=== PATIENT | female | born 1965 | race Caucasian/White ===

== ENCOUNTER 2020-01-21 18:20 | Emergency (ER) | payer OTHER, SELFPAY ==
--- NOTE | 2020-01-21 18:25 | ED.GENADULT ---
HPI - General Adult General Chief complaint: Upper Respiratory Infection Stated complaint: cough/body aches Time Seen by Provider: 01/21/20 18:39 Source: patient Mode of arrival: ambulatory Limitations: no limitations History of Present Illness HPI narrative: 54-year-old female patient presents to the [facility] with complaints of cough and body aches that started today. Patient states she has been using her albuterol inhaler at home for the symptoms denies take anything else. Patient denies getting a flu shot this year. Patient states as the day progresses it her symptoms have been getting worse and states she has had a little bit of a runny nose, cough, body aches, fevers, chills and just overall not feeling well. Related Data Home Medications Medication Instructions Recorded Confirmed levothyroxine [Levoxyl] 200 mcg DAILY 01/21/20 01/21/20 metformin 500 mg PO DAILY 01/21/20 01/21/20 sucralfate 1 g TID 01/21/20 01/21/20 valacyclovir 500 mg DAILY 01/21/20 01/21/20 Allergies Allergy/AdvReac Type Severity Reaction Status Date / Time paraben Allergy Unknown Verified 04/25/19 09:50 Review of Systems Review of Systems: Narrative: CONSTITUTIONAL: Positive fever, body aches, chills, and sweats. EYES: Denies visual changes, redness, or discharge. ENT: Positive rhinorrhea, congestion, denies sore throat, or otalgia. CARDIOVASCULAR: Denies chest pain, palpitations, or edema. RESPIRATORY: Positive cough, denies dyspnea. GASTROINTESTINAL: Denies abdominal pain, nausea, vomiting, or diarrhea. GENITOURINARY: Denies dysuria or hematuria. SKIN: Denies rash or itching. MUSCULOSKELETAL: Denies back pain, joint pain, or myalgia. NEUROLOGIC: Denies headache, numbness, or weakness. PSYCHIATRIC: Denies anxiety or depression. [facility] Family History Family History Mother Family history of obesity Family history of malignant neoplasm of brain Sibling Family history of obesity Family history of malignant neoplasm of thyroid Father Family history of hearing loss Grandparent Hypertension Carcinoma of colon Social History Social History Smoking status: Former smoker Second hand tobacco smoke exposure: No Smoking end date: 11/15/09 Alcohol intake: current Substance use type: marijuana Comments At the time of my signature I agree with nursing past medical history, surgical, social, and family history. There is no relevant family history pertinent to the presenting complaint. Exam Narrative: Exam Narrative: GENERAL: ill-appearing, well-nourished, and in no acute distress. HEAD: Normocephalic, atraumatic. EYES: PERRLA and EOMI. ENT: Nares with erythema and edema noted bilaterally, no rhinorrhea or epistaxis. Mucous membranes moist. Posterior pharynx with no erythema, tonsillar margin, exudates or lesions present. Bilateral TMs are clear with no erythema or foreign bodies in the canal. NECK: Supple. No lymphadenopathy CHEST: Clear to auscultation. No respiratory distress. HEART: Regular rate and rhythm. No murmur heard. Normal peripheral pulses. ABDOMEN: Soft, nontender, nondistended, normal active bowel sounds. EXTREMITIES: Normal range of motion. No edema. SKIN: Warm, dry, no rash. NEURO: No focal deficits. Alert and oriented x3. Course Vital Signs Vital signs: Vital Signs Temperature 38.2 C H 01/21/20 18:38 Pulse Rate 87 01/21/20 18:38 Respiratory Rate 20 01/21/20 18:38 Blood Pressure 112/68 01/21/20 18:38 Pulse Oximetry 100 01/21/20 18:38 Temperature 38.2 C H 01/21/20 18:38 Pulse Rate 87 01/21/20 18:38 Respiratory Rate 20 01/21/20 18:38 Blood Pressure 112/68 01/21/20 18:38 Pulse Oximetry 100 01/21/20 18:38 Vital signs reviewed. Medical Decision Making Differential Diagnosis Differential Diagnosis: Differential diagnosis: Allergic rhinitis, chronic sinusitis, ton
[2020-01-21 18:38] VITALS: BP 112/68; PULSE 87; RESP 20; TEMP 38.2; O2SAT 100
== END 2020-01-21 19:02 | disposition home or self-care (01) ==
PROVIDERS: Emergency Provider Nurse Practitioner Family
DX: J06.9 Acute upper respiratory infection, unspecified (principal); Z87.891 Personal history of nicotine dependence; K21.9 Gastro-esophageal reflux disease without esophagitis; E11.9 Type 2 diabetes mellitus without complications; E03.9 Hypothyroidism, unspecified
CPT/HCPCS: 87804; 99213; G0463

== ENCOUNTER 2021-11-18 10:00 | Emergency (ER) | payer OTHER, SELFPAY ==
[2021-11-18 10:13] VITALS: BP 141/80; PULSE 57; RESP 18; TEMP 36.2; O2SAT 100
--- NOTE | 2021-11-18 10:47 | ED.URI ---
HPI - URI/Sore Throat General Chief Complaint: Upper Respiratory Infection Stated Complaint: headache,fatigue Time Seen by Provider: 11/18/21 10:24 Source: patient and RN notes reviewed Mode of arrival: ambulatory Limitations: no limitations History of Present Illness HPI Narrative: Patient presents today complaining of 3-day history of scratchy throat, fatigue, change in taste and smell, ears itching, and headache. Has been tested positive for COVID-19. Patient has tested negative at home. Denies cough, shortness of breath, fever. She has been taking allergy medication and vitamin C with some relief. Related Data Home Medications Medication Instructions Recorded Confirmed levothyroxine [Levoxyl] 200 mcg DAILY 01/21/20 01/21/20 estradiol-norethindrone acet tablet 11/18/21 naproxen 11/18/21 pantoprazole PO 11/18/21 Allergies Allergy/AdvReac Type Severity Reaction Status Date / Time paraben Allergy Unknown Unknown Verified 11/18/21 10:20 Review of Systems Review of Systems: CONSTITUTIONAL: Denies body aches, fever, chills, or sweats.+ Fatigue EYES: Denies visual changes, redness, or discharge. ENT: Denies rhinorrhea, congestion, sore throat, or otalgia.+ Scratchy throat, itchy ears, change in taste and smell CARDIOVASCULAR: Denies chest pain, palpitations, or edema. RESPIRATORY: Denies cough or dyspnea. GASTROINTESTINAL: Denies abdominal pain, nausea, vomiting, or diarrhea. GENITOURINARY: Denies dysuria or hematuria. SKIN: Denies rash, itching, or wounds. MUSCULOSKELETAL: Denies back pain, joint pain, or myalgia. NEUROLOGIC: Denies numbness, tingling, or weakness.+ Headache PSYCH: Denies depression or anxiety. [facility] Family History Family History Mother Family history of obesity Family history of malignant neoplasm of brain Sibling Family history of obesity Family history of malignant neoplasm of thyroid Father Family history of hearing loss Grandparent Hypertension Carcinoma of colon Social History Social History Smoking status: Former smoker Second hand tobacco smoke exposure: No Smoking end date: 11/15/09 Alcohol intake: current Substance use type: marijuana Comments At time of signature, I have reviewed and agree with nursing past medical, surgical, social and family history unless otherwise noted. Please see nursing chart for further information. There is no relevant family history pertinent to the presenting complaint Exam Narrative: GENERAL: Well-appearing, well-nourished, and in no acute distress. HEAD: Normocephalic, atraumatic. EYES: EOMI. No redness or drainage. Conjunctivae normal. ENT: Mucous membranes pink and moist. Nares clear. No rhinorrhea. TMs normal bilaterally. Throat normal. Uvula midline. NECK: Normal AROM. Supple. No lymphadenopathy. CHEST: No respiratory distress. Clear to auscultation. HEART: Regular rate and rhythm. No murmur appreciated. Normal peripheral pulses. EXTREMITIES: Normal range of motion. No edema. SKIN: Warm, dry, no rash. Capillary refill normal. Normal skin turgor. NEURO: No focal deficits. Alert and oriented x3. Gait steady. PSYCH: Normal affect. No signs of depression or anxiety. Course Course Level of Care: Express Care Visit Vital Signs Vital signs: Vital Signs Temperature 97.1 F L 11/18/21 10:13 Pulse Rate 57 L 11/18/21 10:13 Respiratory Rate 18 11/18/21 10:13 Blood Pressure 141/80 H 11/18/21 10:13 Pulse Oximetry 100 11/18/21 10:13 Temperature 97.1 F L 11/18/21 10:13 Pulse Rate 57 L 11/18/21 10:13 Respiratory Rate 18 11/18/21 10:13 Blood Pressure 141/80 H 11/18/21 10:13 Pulse Oximetry 100 11/18/21 10:13 Reviewed. Pt has been instructed to follow up with her PCP regarding her elevated blood pressure today. MDM - URI/Sore Throat Differential Diagnosis Differential
[2021-11-19 14:39] LABS: SARS-CoV-2 RNA PCR Negative
== END 2021-11-18 11:06 | disposition home or self-care (01) ==
PROVIDERS: Emergency Provider Nurse Practitioner; PCP Internal Medicine
DX: B34.9 Viral infection, unspecified (principal); Z20.822 Contact with and (suspected) exposure to COVID-19; Z87.891 Personal history of nicotine dependence; K21.9 Gastro-esophageal reflux disease without esophagitis; E11.9 Type 2 diabetes mellitus without complications; E03.9 Hypothyroidism, unspecified
CPT/HCPCS: 87426; 99213; C9803; G0463; U0003; U0005